=== PATIENT | female | born 1975 | race Caucasian/White ===

== ENCOUNTER 2021-04-12 | Day surgery (SDC) | payer OTHER, SELFPAY ==
[2021-02-01 14:10] VITALS: BMI 21.7
[2021-03-17 12:54] VITALS: BMI 21.7
[2021-04-12 11:05] VITALS: BP 144/91; PULSE 90; RESP 18; TEMP 37; O2SAT 98; BMI 24.0
[2021-04-12] MEDS: LACTATED RINGERS 1,000 ML 150 ML IV CONT (11:35)
[2021-04-12 11:37] LABS: Glucose Point of Care 112 mg/dl (65-105)
--- NOTE | 2021-04-12 12:33 | WPDANESEPPF ---
Anes - Initial Pre Proc Eval Procedure: Operation Date: 04/12/21 13:00 Proposed Procedures p Colonoscopy - Dago Garcia MD Date/Time: 04/12/21 12:33 Surgeon: Dago Garcia MD Pre Op Diagnosis: diarrhea, constipation, blood in stool Patient Data Age: 46 Gender: F Height: 1.68 m Weight: 67.6 kg Last Vital Signs Temp 98.6 F 04/12/21 11:05 Pulse 90 04/12/21 11:05 Resp 18 04/12/21 11:05 BP 144/91 H 04/12/21 11:05 Pulse Ox 98 04/12/21 11:05 Allergies Allergy/AdvReac Type Severity Reaction Status Date / Time No Known Allergies Allergy Verified 04/12/21 11:21 Home Medications Medication Instructions Recorded Confirmed Type buspirone 5 mg PO TID 02/01/21 04/12/21 History carvedilol 25 mg PO BID 02/01/21 04/12/21 History escitalopram oxalate 5 mg PO DAILY 02/01/21 04/12/21 History meloxicam 7.5 mg PO BID 02/01/21 04/12/21 History omeprazole 20 mg PO BID 02/01/21 04/12/21 History potassium chloride [Klor-Con M20] 20 meq PO BID 02/01/21 04/12/21 History pregabalin 50 mg PO HS 02/01/21 04/12/21 History telmisartan-hydrochlorothiazid 1 tablet PO DAILY 02/01/21 04/12/21 History tramadol 50 mg PO BID 02/01/21 04/12/21 History Laboratory Tests 04/12/21 11:27 POC Capillary Glucose 112 mg/dl H mg/dl (65-105) Patient hx anesthesia problems: none Family hx anesthesia problems: none Results Review: All pre-operative results and documents have been reviewed as part of the pre-operative evaluation. [facility] Social History Social History Smoking packs per day: 1 Smoking cigarettes per day: 20.0 Years smoked: 30 Smoking pack-years: 30.00 Smoking status: Current every day smoker Tobacco type: cigarettes Alcohol intake: former Alcohol use details: Quit 2014 Substance use: current Living arrangements: with friend(s) Spiritual care concerns: No Anes - Eval Final PreProcedure Day of Procedure 04/12/21 12:33 Patient weight: normal Heart: regular rate and rhythm Lungs: clear to auscultation Airway: Mallampati scale class II Neurological: alert and oriented Last oral intake: >/= 8 hours ASA classification: II Emergent: no Anesthetic plan: proceed Anesthesia type and monitoring: general GIVS and standard monitoring Results Review: All pre-operative results and documents have been reviewed as part of the pre-operative evaluation. Informed Consent: The patient's anesthetic plan and its attendant risks and benefits were discussed with the patient/family/POA. Questions were solicited and answers provided to the satisfaction of the patient/family/POA.
--- NOTE | 2021-04-12 12:44 | PM.HPGS ---
History of Present Illness History of Present Illness Consent: Risks, benefits, and alternatives have been discussed and questions answered. Patient agrees to proceed with procedure. Chief complaint: diarrhea, constipation, blood in stool Narrative: Tonya Bell is a 46 year old female with intermittent hematochezia, never had colonoscopy Review of Systems Constitutional: Constitutional: Denies headache(s) and Denies weakness Eyes: Eyes: Denies blurry vision ENT: Reports Normal hearing present, Denies headache(s) and Denies neck pain Cardiovascular: Cardiovascular: Denies chest pain and Denies dyspnea Respiratory: Respiratory: Denies dyspnea Gastrointestinal: Gastrointestinal: Reports no additional gastrointestinal complaints Genitourinary: Genitourinary: Denies dysuria Musculoskeletal: Musculoskeletal: Denies neck pain Integumentary/Breasts: Skin/Breast: Denies dry skin Neurologic: Reports Normal hearing present, Denies headache(s) and Denies weakness Psychiatric: Psychiatric: Denies anxiety Endocrine: Endocrine: Denies change in body appearance Hematologic/Lymphatic: Hematologic/Lymphatic: Denies easy bleeding Allergic/Immunologic: Allergic/Immunologic: Denies urticaria PMFSH Past Medical History Medical History (Updated 04/12/21 @ 12:44 by Dago Garcia MD) Hematochezia Social History Social History Smoking packs per day: 1 Smoking cigarettes per day: 20.0 Years smoked: 30 Smoking pack-years: 30.00 Smoking status: Current every day smoker Tobacco type: cigarettes Alcohol intake: former Alcohol use details: Quit 2014 Substance use: current Living arrangements: with friend(s) Spiritual care concerns: No Meds Home Medications and Allergies Home Medications Medication Instructions Recorded Confirmed Type buspirone 5 mg PO TID 02/01/21 04/12/21 History carvedilol 25 mg PO BID 02/01/21 04/12/21 History escitalopram oxalate 5 mg PO DAILY 02/01/21 04/12/21 History meloxicam 7.5 mg PO BID 02/01/21 04/12/21 History omeprazole 20 mg PO BID 02/01/21 04/12/21 History potassium chloride [Klor-Con M20] 20 meq PO BID 02/01/21 04/12/21 History pregabalin 50 mg PO HS 02/01/21 04/12/21 History telmisartan-hydrochlorothiazid 1 tablet PO DAILY 02/01/21 04/12/21 History tramadol 50 mg PO BID 02/01/21 04/12/21 History Allergies Allergy/AdvReac Type Severity Reaction Status Date / Time No Known Allergies Allergy Verified 04/12/21 11:21 Vital Signs Vital Signs - 24 hr 04/12/21 11:05 Temperature 98.6 F Pulse Rate 90 Respiratory Rate 18 Blood Pressure 144/91 H Pulse Oximetry 98 Exam Const: General: comfortable and no acute distress HENMT: General nose exam: Normal nares present Eyes: General: appearance normal, both eyes and all related structures Neck: Neck: no JVD Resp: Auscultation: clear to auscultation bilaterally Cardio: Rate: regular rate Rhythm: regular rhythm GI: Inspection: non-distended GI Palp: Yes Soft to palpation Skin: General skin exam: normal color Neuro: General: gait normal Speech: normal speech Extrem: General: normal to inspection Psych: Mental Status: mental status grossly normal Assessment and Plan Assessment and plan (1) Hematochezia: Code(s): K92.1 - Melena Status: Acute Assessment and Plan: probably perianal, will assess with colonoscopy
[2021-04-12 13:00] VITALS: BP 105/62; PULSE 78; RESP 16; O2SAT 92
[2021-04-12 13:10] VITALS: BP 113/74; PULSE 73; RESP 18; O2SAT 100
[2021-04-12 13:24] VITALS: BP 116/83; PULSE 76; RESP 19; O2SAT 100
== END 2021-04-12 13:30 | disposition home or self-care (01) ==
PROVIDERS: PCP Family Medicine; Visit Provider Internal Medicine Gastroenterology
PROC: 0DJD8ZZ Inspection of Lower Intestinal Tract, Via Natural or Artificial Opening Endoscopic (ICD-10-PCS; CPT 45378; principal; 2021-04-12 13:00)
DX: Z12.11 Encounter for screening for malignant neoplasm of colon (principal); K63.5 Polyp of colon; K64.8 Other hemorrhoids; K64.4 Residual hemorrhoidal skin tags; K92.1 Melena; F17.210 Nicotine dependence, cigarettes, uncomplicated
CPT/HCPCS: 45385; 82948; 88305; J2704; J7120